=== PATIENT | male | born 1980 | race Caucasian/White ===

== ENCOUNTER 2018-05-13 15:10 | Emergency (ER) | payer BC ==
[2018-05-13 15:29] VITALS: BP 151/98
[2018-05-13] MEDS ORDERED: Mupirocin 2% OINT* TUBE TOPICAL ONE (15:53)
[2018-05-13] MEDS ORDERED: Cephalexin CAP* 500 MG PO ONE (15:58)
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
== END 2018-05-13 16:26 | disposition home or self-care (01) ==
LOC: UCCORT 15:10
DX: T22.212A Burn of second degree of left forearm, initial encounter (principal); T23.101A Burn of first degree of right hand, unspecified site, initial encounter; T20.10XA Burn of first degree of head, face, and neck, unspecified site, initial encounter; T20.1 Burn of first degree of head, face, and neck; T28.4 Burns of other and unspecified internal organs; T31.10 Burns involving 10-19% of body surface with 0% to 9% third degree burns; X08.8XXA Exposure to other specified smoke, fire and flames, initial encounter; Y93.89 Activity, other specified; Y92.9 Unspecified place or not applicable; Z88.0 Allergy status to penicillin; F17.210 Nicotine dependence, cigarettes, uncomplicated
CPT/HCPCS: 16030; 99203; A9270-GY; G0463